=== PATIENT | male | born 1950 | race Caucasian/White ===

== ENCOUNTER → 2020-06-04 10:11 | Outpatient (CLI) | payer MEDICARE, SELFPAY ==
[2020-06-04 11:37] LABS: PSA,Total - Annual Screen 1.68 ng/mL (0.00-4.00)
== END ==
PROVIDERS: PCP Family Medicine; Referring Provider Urology; Visit Provider Urology
DX: Z12.5 Encounter for screening for malignant neoplasm of prostate (principal)
CPT/HCPCS: 36415; 84153; G0103

== ENCOUNTER 2020-07-11 10:09 | Day surgery (SDC) | payer MEDICARE, SELFPAY ==
--- NOTE | 2020-07-04 08:04 | EKG12_ITS ---
Test Reason : PRE OP Blood Pressure : / mmHG Vent. Rate : 084 BPM Atrial Rate : 084 BPM P-R Int : 180 ms QRS Dur : 098 ms QT Int : 356 ms P-R-T Axes : 077 050 074 degrees QTc Int : 420 ms Normal sinus rhythm Nonspecific T wave abnormality Abnormal ECG Confirmed by FARZANEH WADE ([id number]), magazine editor HUI SMART ([id number]) on 07/09/2020 9:47:32 AM Referred By: Ceasar Guevara Confirmed By:FARZANEH WADE
[2020-07-04 08:26] LABS: Hemoglobin 14.8 g/dL (13.0-16.5); Mean Corp Hgb Conc 33.6 g/dL (32-36); Mean Corpuscular Volume 92.1 fL (80-94); Mean Platelet Vol. 9.1 fl (6.2-12.0); Platelet Count 280 K/mm3 (150-450); RBC Distribution Width CV 13.1 % (11.6-14.6); RBC Distribution Width SD 44.3 fl (35.1-43.9); Red Blood Count 4.78 M/mm3 (4.6-6.2); White Blood Count 7.4 K/mm3 (4.4-11.0)
[2020-07-04 08:58] LABS: Anion Gap 3 (5-15); BUN 16 mg/dL (7-18); BUN/Creat Ratio 13.9 RATIO (10-20); Calcium,Total 9.2 mg/dL (8.5-10.1); Chloride 102 mmol/L (98-107); Creatinine, Serum 1.15 mg/dL (0.70-1.30); EST Glomerular Filtration Rate 67 mL/min (>60); Est Glom Filt Rate - Afr Amer 81 mL/min (>60); Glucose 138 mg/dL (74-106); Potassium 3.9 mmol/L (3.5-5.1); Sodium Level 135 mmol/L (136-145)
[2020-07-11] VITALS (7 sets, daily range): BP systolic 130–155; BP diastolic 76–90; PULSE 75–100; RESP 16–18; TEMP 36.1–36.6; O2SAT 94–100; BMI 22.5
[2020-07-11] MEDS: Lactated Ringers 1,000 ML 100 ML IV (11:10)
[2020-07-11] MEDS: Ciprofloxacin 400 MG/200 ML BAG 200 MG IV (11:11)
--- NOTE | 2020-07-11 12:10 | PCM.HP.STD ---
History of Present Illness Date of Admission: 07/11/20 Chief Complaint: Bladder tumor The patient is a 69 year old male found to have bladder tumor on cystoscopy today we plan to take him to surgery for resection of a 3 cm bladder tumor Past Medical History Allergies amoxicillin [From Augmentin] Allergy (Verified 07/11/20 10:59) PT UNSURE OF REACTION blisters on tongue clavulanic acid [From Augmentin] Allergy (Verified 07/11/20 10:59) PT UNSURE OF REACTION blisters on tongue Home Medications: Ambulatory Orders Medication Instructions Recorded Lisinopril/Hydrochlorothiazide 1 ea PO DAILY 07/03/20 [Lisinopril-Hctz 10-12.5 mg Tab] Surgical History: no surgical history Smoking Status: Former smoker Review of Systems Constitutional: Denies: Chills, Fever, Weight Change HEENT: Denies: Head Aches, Sinus Congestion, Sinus Drainage Cardiovascular: Denies: Chest Pain, Palpitations Respiratory: Denies: Cough, Shortness of breath at rest, Sputum production Gastrointestinal: Denies: Abdominal Pain, Nausea, Vomiting Genitourinary: Denies: Dysuria Musculoskeletal: Denies: Joint Pain, Joint Tenderness Skin: Denies: Rash, Wounds Neurological: Denies: Numbness, Tingling, Focal weakness Psychiatric: Denies: Anxiety, Depression, Homicidal Ideations, Suicidal Ideations Hematologic/ Lymphatic: Denies: Easy Bruising, Easy Bleeding VTE Information - Inpt Only VTE Present on Admission: No VTE Mechan Device Prophylaxis: SCD's - Physical Exam Vitals/I&O's: Vital Signs Temp Pulse Resp BP Pulse Ox 97.9 F 75 16 143/77 H 100 07/11/20 11:00 07/11/20 11:00 07/11/20 11:00 07/11/20 11:07/11/20 11:00 Oxygen Delivery Method Room Air Weight: 67.2 kg Body Mass Index (BMI) 22.5 General: Alert, Oriented x3, Cooperative HEENT: Atraumatic, PERRLA, EOMI, Normocephalic Neck: Supple, No JVD, Negative Carotid Bruits Lungs: Clear to auscultation, Normal air movement Cardiovascular: Regular rate, No murmurs Abdomen: Bowel Sounds Present, Soft, Non Tender Extremities: No edema, Capillary Refill Less than 3 Seconds Skin: No rashes, No breakdown Musculoskeletal: No Tenderness to Palpation of Joints or Extremities Neurological: Cranial nerves II-XII grossly intact Psych/Mental Status: Normal Affect, Appropriate Current Medications Ciprofloxacin (Cipro) 400 mg in 200 mls @ 200 mls/hr IV PREOP ONE Stop: 07/11/20 13:44 Last Admin: 07/11/20 11:11 Dose: 200 mls/hr Documented by: Lactated Ringer's () 1,000 mls @ 100 mls/hr IV .Q10H JENNIFER Last Admin: 07/11/20 11:10 Dose: 100 mls/hr Documented by: Assessment/Plan Plan to proceed with transurethral section of bladder tumor
--- NOTE | 2020-07-11 12:13 | PCM.DC.URO ---
Discharge Diet: Light diet - advance as tolerated Discharge Activity: Return to Normal Activity Allergies/Adverse Reactions: Allergies amoxicillin [From Augmentin] Allergy (Verified 07/11/20 10:59) PT UNSURE OF REACTION blisters on tongue clavulanic acid [From Augmentin] Allergy (Verified 07/11/20 10:59) PT UNSURE OF REACTION blisters on tongue Medications to take at Discharge Lisinopril/Hydrochlorothiazide [Lisinopril-Hctz 10-12.5 mg Tab] 1 ea PO DAILY 07/03/20 Ciprofloxacin [Cipro] 500 mg PO BID #6 tab 07/11/20 Hydrocodone/Acetaminophen [Vanderwagen 5-325 Tablet] 1 each PO Q4H PRN PRN #14 tablet 07/11/20 The following prescriptions were given: Ciprofloxacin [Cipro] 500 mg PO BID #6 tab Transmission Status: Pending to [facility]/pharmacy #[id number] Hydrocodone/Acetaminophen [Vanderwagen 5-325 Tablet] 1 each PO Q4H PRN PRN #14 tablet PRN Reason: Pain Score 1-10/10 Transmission Status: Received by [facility]pharmacy #[id number] Primary Care Physician: Lopez Gonzales MD [Primary Care Provider] - Test Results: Test results from this visit will be discussed in further detail at your follow-up appointment, if applicable. Please Follow Up With: Ceasar Guevara MD When: in 2 weeks, please call to make an appointment.
--- NOTE | 2020-07-11 12:20 | BLB_PTH ---
PATIENT: NURA HOLMAN Jr. [place] [facility] [id number] AGE/SX: 69/M ROOM: RE07/11/[address]: Dr. Ceasar Guevara MD : 1950 BED: DIS: 07/11/2020 SPEC #: [id number] RECD: 07/11/20 14:18 STATUS: KYREE REDiya #: [id number] MONICA: 07/11/20 12:[address]: Ceasar Guevara DEPT: SURGICAL PATHOLOGY RECD BY: Dante Hernandez ENTERED: 07/12/20 11:46 SP TYPE: TURB OTHR DR: Dr. Lopez Gonzales MD Tissues: Urinary bladder, NOS Procedures: Surgery Specimen Level V HEADER OPERATION: Cysto, transurethral resection bladder, Olympus PRE-OP DIAGNOSIS: Bladder tumor TISSUE SUBMITTED: Bladder tumor MICROSCOPIC DIAGNOSIS Urinary bladder tumor, transurethral resection: Papillary urothelial carcinoma. See cancer checklist below. AM:dhara 07/13/20 COMMENT BLADDER CANCER (TUR) SUMMARY Procedure: Transurethral resection of bladder (TURBT) Tumor site: Not specified Histologic type: Papillary urothelial carcinoma Histologic grade: Low grade (WHO) Tumor configuration: Papillary Muscularis propria invasion presence: No detrusor muscle present. Lymphvascular invasion: Not identified Tumor extension: Limited to urothelium. Additional pathologic findings: Mild chronic inflammation. The above summary is in compliance with [employer] [place] [employer] (CAP) Cancer Protocols Checklist and [place] Joint Committee on Cancer (AJCC), Staging Manual, 8th Ed. MICROSCOPIC DESCRIPTION Slides are reviewed. GROSS DESCRIPTION Received in fixative is one container labeled with the patient's name and designated bladder tumor. The specimen consists of multiple irregular fragments of hogan soft tissue that in aggregate measure 2.5 x 2 x 0.2 cm. The specimen is totally submitted in one cassette. / SJ:dhara 07/12/20 TC:0 CPT: 58642
--- NOTE | 2020-07-11 12:32 | OP.PCM_ITS ---
Report of Operation Date of Procedure: 07/11/20 Pre-Operative Diagnosis: Bladder tumor lateral wall 3 cm Post-Operative Diagnosis: Same Surgery/Procedure Performed:: Cystoscopy transurethral resection of a bladder tumor. Description of Surgical Findings:: 69-year-old male was found to have a 3 cm tumor in the lateral wall of the bladder is a solitary large tumor in presents to the operating room for resection of this tumor. Patient was taken back to surgery after induction of general anesthesia he was placed in dorsolithotomy position the penis and testicles were prepped and draped in usual fashion went into the bladder with a 21 B[place] rigid cystourethroscope did a miller cystoscopy a 30 and 70 degree lens he had an obstructive prostate bilateral hypertrophy small median lobe inside the bladder the trigone was identified the left right ureter orifice were clear there was a tumor emanating from the left lateral wall is about 3 cm in size papillary in type and no other tumors are seen visibly within the bladder there was a bunch of little tumors around the main tumor I then switched over the resectoscope using a 30 degree lens and a median loop I then resected this tumor completely cauterized the base Ellik out all the tumor chips out of the bladder handed off as a specimen patient's bladder was drained anesthetic is being reversed we will plan to see him back in about 10 days for review of the pathology and probably plan for BCG given the findings at resection. Type of Anesthesia:: General Drains: none - Admit VTE Documentation VTE Present on Admission: No VTE Mechan Device Prophylaxis: SCD's
== END 2020-07-11 14:26 | disposition home or self-care (01) ==
LOC: SDC 10:09 → AC 10:09
PROVIDERS: Anesthesiology; PCP Family Medicine; Referring Provider Urology; Visit Provider Urology
PROC: 0TBB8ZZ Excision of Bladder, Via Natural or Artificial Opening Endoscopic (ICD-10-PCS; CPT 52235; principal; 2020-07-11 12:10)
DX: C67.2 Malignant neoplasm of lateral wall of bladder (principal); I10 Essential (primary) hypertension; N40.1 Benign prostatic hyperplasia with lower urinary tract symptoms; Z79.899 Other long term (current) drug therapy; Z87.891 Personal history of nicotine dependence
CPT/HCPCS: 52235; 36415; 80048; 85027; 87635; 88307; 93005; 94799; J7120; J0744; J2405; U0003

== ENCOUNTER → 2020-09-12 09:05 | Outpatient (CLI) | payer MEDICARE, SELFPAY ==
[2020-07-11 11:00] VITALS: BMI 22.5
== END ==
PROVIDERS: PCP Family Medicine; Visit Provider Nurse Practitioner Family
DX: Z20.828 Contact with and (suspected) exposure to other viral communicable diseases (principal)
CPT/HCPCS: 87635; C9803; U0003

== ENCOUNTER → 2020-10-16 | Outpatient (CLI) | payer MEDICARE, SELFPAY ==
[2020-07-11 11:00] VITALS: BMI 22.5
--- NOTE | 2020-10-16 | CYSPIN_PTH ---
PATIENT: NURA HOLMAN Jr. LOC: [facility] U#:[id number] AGE/SX: 70/M ROOM: RE10/16/[address]: Dr. Ceasar Guevara MD : 1950 BED: DIS: 10/16/2020 SPEC #: [id number] RECD: 10/17/20 08:12 STATUS: KYREE LAURA #: [id number] MONICA: 10/16/20 00:[address]: Ceasar Guevara DEPT: CYTOLOGY RECD BY: Mariel Chavez ENTERED: 10/17/20 08:14 SP TYPE: CYSPIN FL OTHR DR: Dr. Lopez Gonzales MD Tissues: Urine Procedures: Pap Stain (control) Special Stain Group II Cytospin Fluid HEADER OPERATION: Not noted PRE-OP DIAGNOSIS: Malignant neoplasm of lateral wall of bladder TISSUE SUBMITTED: Urine for cytology DIAGNOSIS CYTOLOGY Urine for cytology (cytospin): Rare atypical urothelial cells present. AM:dhara 10/18/20 COMMENT Reference is made to the patient's recent bladder TUR ([id number]) in which papillary urothelial carcinoma (low-grade) was identified. CYTOLOGY STUDY Slides are reviewed. CYTOLOGY GROSS Received is 20 ml of dark yellow cloudy fluid labeled with the patient's name and and designated per the requisition as urine. Submitted for cytology preparation. / dhara 10/17/20 TC:? CPT: 51930
[2020-10-16 13:31] LABS: Cytology, Body Fluid / CSF SEE PATHOLOGY REPORT
== END | disposition home or self-care (01) ==
LOC: LABSPEC 12:41
PROVIDERS: PCP Family Medicine; Visit Provider Urology
DX: C67.2 Malignant neoplasm of lateral wall of bladder (principal)
CPT/HCPCS: 88108; 88313

== ENCOUNTER → 2021-01-17 | Outpatient (CLI) | payer MEDICARE, SELFPAY ==
[2020-07-11 11:00] VITALS: BMI 22.5
--- NOTE | 2021-01-17 | BLA_PTH ---
PATIENT: NURA HOLMAN Jr. LOC: [facility] U#:[id number] AGE/SX: 70/M ROOM: RE01/17/[address]: Dr. Ceasar Guevara MD : 1950 BED: DIS: 01/17/2021 SPEC #: [id number] RECD: 01/17/21 13:54 STATUS: KYREE REDiya #: [id number] MONICA: 01/17/21 00:[address]: Ceasar Guevara DEPT: SURGICAL PATHOLOGY RECD BY: Maximilian Montero ENTERED: 01/17/21 13:54 SP TYPE: BLADDER BX OTHR DR: Dr. Lopez Gonzales MD Tissues: Urinary bladder, NOS Procedures: Surgery Specimen Level IV HEADER OPERATION: Bladder biopsy PRE-OP DIAGNOSIS: Neoplasm of bladder TISSUE SUBMITTED: Bladder biopsy MICROSCOPIC DIAGNOSIS Bladder, biopsy: Papillary urothelial carcinoma, low grade (1-2/3). See comment. CONCHA:dhara 01/18/2021 COMMENT The entire specimen consists of tumor. Detrusor muscle is not identified. No lamina propria invasion is noted. Lymphvascular invasion is not seen. Please make reference to previous specimen ([id number]) urinary bladder tumor, TUR with diagnosis of papillary urothelial carcinoma. MICROSCOPIC DESCRIPTION Slides are reviewed. GROSS DESCRIPTION Received in fixative is one container labeled with the patient's name and designated bladder biopsy. The specimen consists of one irregular fragment of light hogan soft tissue that measures 0.2 x 0.1 x 0.1 cm. The specimen is totally submitted in one cassette. / SJ:dhara 01/17/21 TC:0 CPT: 06212
--- NOTE | 2021-01-17 09:45 | CYSPIN_PTH ---
PATIENT: NURA HOLMAN Jr. LOC: [facility] U#:[id number] AGE/SX: 70/M ROOM: RE01/17/[address]: Dr. Ceasar Guevara MD : 1950 BED: DIS: 01/17/2021 SPEC #: [id number] RECD: 01/18/21 08:24 STATUS: KYREE REDiya #: [id number] MONICA: 01/17/21 09:[address]: Ceasar Guevara DEPT: CYTOLOGY RECD BY: Mariel Chavez ENTERED: 01/18/21 08:24 SP TYPE: CYSPIN FL OTHR DR: Dr. Lopez Gonzales MD Tissues: Urine Procedures: Pap Stain (control) Special Stain Group II Cytospin Fluid HEADER OPERATION: Not noted PRE-OP DIAGNOSIS: Bladder cancer TISSUE SUBMITTED: Urine for cytology DIAGNOSIS CYTOLOGY Urine for cytology (cytospin): Negative for malignant cells. See comment. SJ:dhara 01/18/2021 COMMENT Numerous crystals are also noted. The specimen also shows numerous sperms consistent with semen contamination. Clinical correlation and appropriate follow up are necessary. Please make reference to previous specimen ([id number]), urinary bladder tumor, TUR with diagnosis of papillary urothelial carcinoma. CYTOLOGY STUDY Slides are reviewed. CYTOLOGY GROSS Received is 40 ml of gold cloudy fluid labeled with the patient's name and and designated per the requisition as urine. Submitted for cytology preparation. / dhara 01/17/21 TC:5 CPT: 94725
[2021-01-17 17:01] LABS: Cytology, Body Fluid / CSF SEE PATHOLOGY REPORT
== END | disposition home or self-care (01) ==
PROVIDERS: PCP Family Medicine; Visit Provider Urology
DX: C67.2 Malignant neoplasm of lateral wall of bladder (principal)
CPT/HCPCS: 88108; 88305; 88313

== ENCOUNTER 2021-01-22 07:36 | Outpatient (RCR) | payer MEDICARE, SELFPAY ==
[2020-07-11 11:00] VITALS: BMI 22.5
[2021-01-22] MEDS: COVID-19 VACC, MRNA(PFIZER)/PF 30 MCG/0.3 ML SYRINGE IM (08:07)
[2021-02-12] MEDS: COVID-19 VACC, MRNA(PFIZER)/PF 30 MCG/0.3 ML SYRINGE IM (07:50)
== END 2021-04-23 23:59 ==
LOC: IMMUN 07:36
PROVIDERS: PCP Family Medicine; Referring Provider Family Medicine; Visit Provider Family Medicine
DX: Z23 Encounter for immunization (principal)
CPT/HCPCS: 0001A; 0002A; 91300

== ENCOUNTER → 2021-05-02 | Outpatient (CLI) | payer MEDICARE, SELFPAY ==
[2020-07-11 11:00] VITALS: BMI 22.5
--- NOTE | 2021-05-02 | CYSPIN_PTH ---
PATIENT: NURA HOLMAN Jr. LOC: [facility] U#:[id number] AGE/SX: 70/M ROOM: RE05/02/[address]: Dr. Ceasar Guevara MD : 1950 BED: DIS: 05/02/2021 SPEC #: [id number] RECD: 05/02/21 12:34 STATUS: KYREE REDiya #: [id number] MONICA: 05/02/21 00:[address]: Ceasar Guevara DEPT: CYTOLOGY RECD BY: Maximilian Montero ENTERED: 05/02/21 12:35 SP TYPE: CYSPIN FL OTHR DR: Dr. Lopez Gonzales MD Tissues: Urine Procedures: Pap Stain (control) Special Stain Group II Cytospin Fluid HEADER OPERATION: Not noted PRE-OP DIAGNOSIS: Malignant neoplasm of lateral wall of bladder TISSUE SUBMITTED: Urine for cytology DIAGNOSIS CYTOLOGY Urine for cytology (cytospin): Rare mildly atypical urothelial cells noted. See comment. SJ:dhara 05/03/2021 COMMENT The specimen is paucicellular. A few sperms are also noted. Clinical correlation and appropriate follow up are necessary. Please make reference to previous specimens ([id number]) urinary bladder tumor with diagnosis of papillary urothelial carcinoma and ([id number]) bladder, biopsy with diagnosis of papillary urothelial carcinoma, low grade. CYTOLOGY STUDY Slides are reviewed. CYTOLOGY GROSS Received is 10 ml of gold, cloudy fluid labeled with the patient's name and and designated per the requisition as urine. Submitted for cytology preparation. / dhara 05/02/2021 TC:5 CPT: 53781
[2021-05-02 11:37] LABS: Cytology, Body Fluid / CSF SEE PATHOLOGY REPORT
== END | disposition home or self-care (01) ==
PROVIDERS: PCP Family Medicine; Visit Provider Urology
DX: C67.2 Malignant neoplasm of lateral wall of bladder (principal)
CPT/HCPCS: 88108; 88313

== ENCOUNTER → 2021-09-02 | Outpatient (CLI) | payer MEDICARE, SELFPAY ==
--- NOTE | 2021-09-02 09:35 | BLA_PTH ---
PATIENT: NURA HOLMAN Jr. LOC: [facility] U#:[id number] AGE/SX: 71/M ROOM: RE09/02/[address]: Dr. Ceasar Guevara MD : 1950 BED: DIS: 09/02/2021 SPEC #: [id number] RECD: 09/02/21 12:51 STATUS: KYREE REDiya #: [id number] MONICA: 09/02/21 09:[address]: Ceasar Guevara DEPT: SURGICAL PATHOLOGY RECD BY: Mariel Chavez ENTERED: 09/02/21 13:17 SP TYPE: BLADDER BX OTHR DR: Dr. Lopez Gonzales MD Tissues: Urinary bladder, NOS Procedures: Surgery Specimen Level IV HEADER OPERATION: Bladder biopsy PRE-OP DIAGNOSIS: C67.2 TISSUE SUBMITTED: Bladder biopsy MICROSCOPIC DIAGNOSIS Bladder, biopsy: Papillary urothelial carcinoma, noninvasive, low grade (/). See comment. CONCHA:dhara 09/03/2021 COMMENT Lamina propria invasion is not seen. No evidence of vascular invasion is noted. Detrusor muscle is not present in the specimen. Please make reference to previous specimens ([id number]) bladder, biopsy with diagnosis of ?papillary urothelial carcinoma, low grade (1-2/3)? and ([id number]) urinary bladder tumor, transurethral resection with diagnosis of ?papillary urothelial carcinoma.? Case has been reviewed in consultation with Dr. Mendoza who concurs with the above diagnosis. IDC:AM MICROSCOPIC DESCRIPTION Slides are reviewed. GROSS DESCRIPTION Received is one container labeled with the patient's name and not further designated. The specimen consists of three irregular fragments of light hogan soft tissue that in aggregate measure 0.3 x 0.3 x 0.1 cm. The specimen is totally submitted in one cassette. / AM:dhara 09/02/21 TC:0 CPT: 85132
--- NOTE | 2021-09-02 10:06 | CYSPIN_PTH ---
PATIENT: NURA HOLMAN Jr. LOC: [facility] U#:[id number] AGE/SX: 71/M ROOM: RE09/02/[address]: Dr. Ceasar Guevara MD : 1950 BED: DIS: 09/02/2021 SPEC #: [id number] RECD: 09/03/21 08:20 STATUS: KYREE REQ #: [id number] MONICA: 09/02/21 10:[address]: Ceasar Guevara DEPT: CYTOLOGY RECD BY: Maximilian Montero ENTERED: 09/03/21 08:21 SP TYPE: CYSPIN FL OTHR DR: Dr. Lopez Gonzales MD Tissues: Urine Procedures: Pap Stain (control) Special Stain Group II Cytospin Fluid HEADER OPERATION: Not noted PRE-OP DIAGNOSIS: Malignant neoplasm of prostate TISSUE SUBMITTED: Urine for cytology DIAGNOSIS CYTOLOGY Urine for cytology (cytospin): Negative for malignant cells. Crystalline debris present. AM:dhara 09/03/2021 CYTOLOGY STUDY Slides are reviewed. CYTOLOGY GROSS Received is 30 ml of yellow cloudy fluid labeled with the patient's name and and designated per the requisition as urine. Submitted for cytology preparation. / dhara 09/03/2021 TC:5 CPT: 58243
[2021-09-02 13:16] LABS: Cytology, Body Fluid / CSF SEE PATHOLOGY REPORT
== END | disposition home or self-care (01) ==
PROVIDERS: PCP Family Medicine; Referring Provider Urology; Visit Provider Urology
DX: Z12.5 Encounter for screening for malignant neoplasm of prostate (principal); C67.2 Malignant neoplasm of lateral wall of bladder
CPT/HCPCS: 88108; 88305; 88313

== ENCOUNTER → 2021-09-03 09:31 | Outpatient (CLI) | payer MEDICARE, SELFPAY ==
--- NOTE | 2021-09-03 09:38 | EKG12_ITS ---
Test Reason : PREOP Blood Pressure : / mmHG Vent. Rate : 059 BPM Atrial Rate : 059 BPM P-R Int : 206 ms QRS Dur : 094 ms QT Int : 388 ms P-R-T Axes : 077 032 072 degrees QTc Int : 384 ms Sinus bradycardia Confirmed by SUKHWINDER WAKEFIELD, LEORA ([id number]), editor greeting card SONIA TRINIDAD ([id number]) on 09/03/2021 2:01:58 PM Referred By: Ceasar Guevara Confirmed By:LEORA PRETTY MD
[2021-09-03 10:54] LABS: Hematocrit 44.2 % (40-54); Hemoglobin 13.9 g/dL (13.0-16.5); Mean Corp Hgb Conc 31.4 g/dL (32-36); Mean Corpuscular Hgb 29.3 pg (27.0-32.0); Mean Corpuscular Volume 93.2 fL (80-94); Mean Platelet Vol. 9.6 fl (6.2-12.0); Platelet Count 295 K/mm3 (150-450); RBC Distribution Width CV 13.7 % (11.6-14.6); RBC Distribution Width SD 47.5 fl (35.1-43.9); Red Blood Count 4.74 M/mm3 (4.6-6.2); White Blood Count 6.8 K/mm3 (4.4-11.0)
[2021-09-03 11:23] LABS: Anion Gap 8 (5-15); BUN 16 mg/dL (7-18); BUN/Creat Ratio 13.7 RATIO (10-20); Calcium,Total 9.6 mg/dL (8.5-10.1); Chloride 101 mmol/L (98-107); Creatinine, Serum 1.17 mg/dL (0.70-1.30); EST Glomerular Filtration Rate 65 mL/min (>60); Est Glom Filt Rate - Afr Amer 79 mL/min (>60); Glucose 95 mg/dL (74-106); Potassium 4.1 mmol/L (3.5-5.1); Sodium Level 139 mmol/L (136-145)
== END ==
PROVIDERS: PCP Family Medicine; Referring Provider Urology; Visit Provider Urology
DX: Z01.812 Encounter for preprocedural laboratory examination (principal); I10 Essential (primary) hypertension
CPT/HCPCS: 36415; 80048; 85027; 93005

== ENCOUNTER → 2021-09-13 | Outpatient (CLI) | payer MEDICARE, SELFPAY ==
--- NOTE | 2021-09-13 07:52 | BLB_PTH ---
PATIENT: NURA HOLMAN Jr. LOC: [facility] U#:[id number] AGE/SX: 71/M ROOM: RE09/13/[address]: Dr. Ceasar Guevara MD : 1950 BED: DIS: 09/13/2021 SPEC #: [id number] RECD: 09/13/21 14:50 STATUS: KYREE REDiya #: [id number] MONICA: 09/13/21 07:[address]: Ceasar Guevara DEPT: SURGICAL PATHOLOGY RECD BY: Maximilian Montero ENTERED: 09/16/21 08:15 SP TYPE: TURB OTHR DR: Dr. Lopez Gonzales MD [facility] Tissues: Urinary bladder, NOS Procedures: Surgery Specimen Level V HEADER OPERATION: Transurethral resection of bladder tumor PRE-OP DIAGNOSIS: Neoplasm of bladder TISSUE SUBMITTED: Bladder tumor MICROSCOPIC DIAGNOSIS Bladder tumor, TUR: Papillary urothelial carcinoma. See cancer summary in the comment section. SJ:dhara 09/17/2021 COMMENT BLADDER CANCER (TUR) SUMMARY Procedure: Transurethral resection of bladder (TURBT) Tumor site: Not specified Histologic type: Papillary urothelial carcinoma, noninvasive Histologic grade: Low grade (1/3) Tumor configuration: Papillary Muscularis propria presence: Muscularis propria (detrusor muscle) is present and free of tumor. Lymphvascular invasion: Not identified Tumor extension: Noninvasive papillary carcinoma Additional pathologic findings: Focal cautery artifacts. The above summary is in compliance with [employer] [place] [employer] (CAP) Cancer Protocols Checklist and [place] [employer] Committee on Cancer (AJCC), Staging Manual, 8th Ed. Case has been reviewed in consultation with Dr. Mendoza who concurs with the above diagnosis. IDC:AM MICROSCOPIC DESCRIPTION Slides are reviewed. GROSS DESCRIPTION Received is one container labeled with the patient's name and not further designated. The specimen consists of two irregular fragments of hogan soft tissue that in aggregate measure 0.4 x 0.3 x 0.1 cm. The specimen is totally submitted in one cassette. / CONCHA:dhara 09/16/21 TC:0 CPT: 44084
== END | disposition home or self-care (01) ==
LOC: LABSPEC 15:14
PROVIDERS: PCP Family Medicine; Visit Provider Urology
DX: C67.2 Malignant neoplasm of lateral wall of bladder (principal)
CPT/HCPCS: 88307

== ENCOUNTER → 2022-06-19 | Outpatient (CLI) | payer MEDICARE, SELFPAY ==
--- NOTE | 2022-06-19 10:38 | CYSPIN_PTH ---
PATIENT: NURA HOLMAN Jr. LOC: [facility] U#:[id number] AGE/SX: 71/M ROOM: RE06/19/[address]: Dr. Ceasar Guevara MD : 1950 BED: DIS: 06/19/2022 SPEC #: [id number] RECD: 06/20/22 06:44 STATUS: KYREE REQ #: [id number] MONICA: 06/19/22 10:[address]: Ceasar Guevara DEPT: CYTOLOGY RECD BY: Mariel Chavez ENTERED: 06/20/22 06:44 SP TYPE: CYSPIN FL OTHR DR: Dr. Lopez Gonzales MD Tissues: Urine Procedures: Pap Stain (control) Special Stain Group II Cytospin Fluid HEADER OPERATION: Not noted PRE-OP DIAGNOSIS: Bladder cancer TISSUE SUBMITTED: Urine for cytology DIAGNOSIS CYTOLOGY Urine for cytology (cytospin): Negative for high grade urothelial carcinoma ([place]bold System Category II). See comment. AM:rg 06/20/2022 COMMENT Occasional metaplastic squamous cells are present. Clinical correlation is suggested. The Nina System for urine cytology diagnostic categorization was used in the evaluation of this case. Case has been reviewed in consultation with Dr. Mark who concurs with the above diagnosis. IDC:SJ CYTOLOGY STUDY Slides are reviewed. CYTOLOGY GROSS Received is 60 ml of yellow clear fluid labeled with the patient's name and and designated per the requisition as urine. Submitted for cytology preparation. / dhara 06/19/2022 TC:5 CPT: 34913
[2022-06-19 16:53] LABS: Cytology, Body Fluid / CSF SEE PATHOLOGY REPORT
== END | disposition home or self-care (01) ==
LOC: LABSPEC 16:35
PROVIDERS: PCP Family Medicine; Referring Provider Urology; Visit Provider Urology
DX: C67.2 Malignant neoplasm of lateral wall of bladder (principal)
CPT/HCPCS: 88108; 88313

== ENCOUNTER → 2022-09-23 | Outpatient (CLI) | payer MEDICARE, SELFPAY ==
--- NOTE | 2022-09-23 11:31 | CYSPIN_PTH ---
PATIENT: NURA HOLMAN Jr. LOC: [facility] U#:[id number] AGE/SX: 72/M ROOM: RE09/23/[address]: Dr. Ceasar Guevara MD : 1950 BED: DIS: 09/23/2022 SPEC #: [id number] RECD: 09/24/22 09:15 STATUS: KYREE REDiya #: [id number] MONICA: 09/23/22 11:[address]: Ceasar Guevara DEPT: CYTOLOGY RECD BY: Mariel Chavez ENTERED: 09/24/22 09:15 SP TYPE: CYSPIN FL OTHR DR: Dr. Paresh Connelly, DO Tissues: Urine Procedures: Pap Stain (control) Special Stain Group II Cytospin Fluid HEADER OPERATION: Not noted PRE-OP DIAGNOSIS: Malignant neoplasm of bladder TISSUE SUBMITTED: Urine for cytology DIAGNOSIS CYTOLOGY Urine for cytology (cytospin): Negative for high-grade urothelial carcinoma (NHGUC), (Nina System Category II). See comment. SJ:dhara 09/24/2022 COMMENT The Nina System for urine cytology diagnostic categorization was used in the evaluation of this case. Please make reference to previous specimens ([id number]), urinary bladder tumor, TUR with diagnosis of ?papillary urothelial carcinoma? and ([id number]) bladder, biopsy with diagnosis of ?papillary urothelial carcinoma? and ([id number]) bladder, biopsy with diagnosis of ?papillary urothelial carcinoma? and ([id number]) bladder tumor, TUR with diagnosis of ?papillary urothelial carcinoma.? CYTOLOGY STUDY Slides are reviewed. CYTOLOGY GROSS Received is 50 ml of yellow cloudy fluid labeled with the patient's name and and designated per the requisition as urine. Submitted for cytology preparation. / dhara 09/23/2022 TC:4 CPT: 40215
[2022-09-23 17:08] LABS: Cytology, Body Fluid / CSF SEE PATHOLOGY REPORT
== END | disposition home or self-care (01) ==
LOC: LABSPEC 16:32
PROVIDERS: PCP Student in an Organized Health Care Education/Training Program; Referring Provider Urology; Visit Provider Urology
DX: C67.2 Malignant neoplasm of lateral wall of bladder (principal)
CPT/HCPCS: 88108; 88313

== ENCOUNTER → 2023-03-31 | Outpatient (CLI) | payer MEDICARE, SELFPAY ==
--- NOTE | 2023-03-31 | CYSPIN_PTH ---
PATIENT: NURA HOLMAN Jr. LOC: [facility] U#:[id number] AGE/SX: 72/M ROOM: RE03/31/[address]: Dr. Ceasar Guevara MD : 1950 BED: DIS: 03/31/2023 SPEC #: [id number] RECD: 03/31/23 14:00 STATUS: KYREE REDiya #: [id number] MONICA: 03/31/23 00:[address]: Ceasar Guevara DEPT: CYTOLOGY RECD BY: Dante Hernandez ENTERED: 04/01/23 07:42 SP TYPE: CYSPIN FL OTHR DR: Dr. Paresh Connelly, DO Tissues: Urine Procedures: Pap Stain (control) Special Stain Group II Cytospin Fluid HEADER OPERATION: Not noted PRE-OP DIAGNOSIS: Malignant neoplasm of bladder TISSUE SUBMITTED: Urine for cytology DIAGNOSIS CYTOLOGY Urine for cytology (cytospin): Negative for high-grade urothelial carcinoma (Nina Category II). See comment. AM:dhara 04/01/2023 COMMENT The Nina System for urine cytology diagnostic categorization was used in the evaluation of this case. CYTOLOGY STUDY Slides are reviewed. CYTOLOGY GROSS Received is 60 ml of hazy yellow fluid labeled with the patient's name and and designated per the requisition as urine. Submitted for cytology preparation. / dhara 03/31/2023 TC:5 CPT: 65918
[2023-03-31 17:14] LABS: Cytology, Body Fluid / CSF SEE PATHOLOGY REPORT
== END | disposition home or self-care (01) ==
LOC: LABSPEC 16:52
PROVIDERS: PCP Student in an Organized Health Care Education/Training Program; Referring Provider Urology; Visit Provider Urology
DX: C67.2 Malignant neoplasm of lateral wall of bladder (principal)
CPT/HCPCS: 88108; 88313

== ENCOUNTER 2023-08-08 11:34 | Observation (INO) | payer MEDICARE, SELFPAY ==
[2023-08-08] VITALS (9 sets, daily range): BP systolic 104–124; BP diastolic 54–72; PULSE 74–87; RESP 15–18; TEMP 36.6–37.2; O2SAT 95–100; BMI 19.8; BMI 20.7
--- NOTE | 2023-08-08 12:06 | US_ITS ---
INDICATION: swelling, pain, redness EXAMINATION: Ultrasound US Scrotum (Contents) TECHNIQUE: Realtime ultrasound of the testicles was performed with grayscale, Color Doppler and spectral Doppler analysis. COMPARISON: No relevant prior comparison study available FINDINGS: RIGHT: TESTIS: 5.3 x 2.8 x 1.8 cm. Normal in size and echotexture, without focal lesion. COLOR DOPPLER: Normal arterial flow present in the testicle with monophasic waveforms. EPIDIDYMIS: Normal in size suboptimally visualized measuring about 7 mm. There is a 2.3 cm cyst. [Normal color Doppler flow pattern in the epididymis. HYDROCELE: None. VARICOCELE: None. LEFT: TESTIS: 4.3 x 2.9 x 3.1 cm. Normal in size and echotexture, without focal lesion. COLOR DOPPLER: There is increased flow to the left testicle. EPIDIDYMIS: Large septated cystic lesion adjacent to the left epididymis measuring about 9.2 x 6.4 x 6 cm could represent large epididymal cysts. [There is increased flow to the left epididymis. HYDROCELE: Moderate left hydrocele with septations VARICOCELE: None. US/Testicular with Arterial Flow IMPRESSION: 1. No evidence of testicular torsion at the time this examination was performed. 2. Large septated cystic lesion adjacent to the left epididymis likely representing large epididymal cyst. Loculated adjacent cysts are seen is less likely but possible. 3. Moderate left hydrocele with septations. Electronically Signed: Casper Francis MD at 13:57 EDT ,
--- NOTE | 2023-08-08 12:08 | EX.ED.GUMALE ---
HPI History of Present Illness Chief Complaint: Male Pain/Injury Narrative Narrative: Patient is a 72-year-old male with history of hypertension, history of bladder cancer. He does see Dr. Guevara. He did see his urologist on , he wanted him to be admitted however the patient did have issues secondary to his having cancer. Patient is here today. Patient's scrotum has been getting increased swelling over the last several days, it is red, he did fail outpatient therapy of Bactrim, Cipro. Patient is here for admission. [facility] Medical History (Updated 08/08/23 @ 15:00 by RAJNI Kemp) BPH (benign prostatic hyperplasia) Former tobacco use GERD (gastroesophageal reflux disease) History of bladder cancer HTN (hypertension) Home Medications lisinopril 10 mg-hydrochlorothiazide 12.5 mg tablet 1 ea PO DAILY bp 07/03/20 [History Last Taken Unknown] tamsulosin 0.4 mg capsule 0.4 mg PO QHS 08/08/23 [History Last Taken Unknown] Allergy/AdvReac Type Severity Reaction Status Date / Time amoxicillin [From Augmentin] Allergy PT UNSURE Verified 08/08/23 11:35 OF REACTION clavulanic acid Allergy PT UNSURE Verified 08/08/23 11:35 [From Augmentin] OF REACTION Family History (Updated 08/08/23 @ 14:[address] Regina Jean MD) Mother Hypertension Thyroid disorder Father Diabetes Surgical History (Updated 08/08/23 @ 13:[address] Regina Jean MD) History of bladder surgery Hx of colonoscopy S/P repair of hydrocele Social History (Updated 08/08/23 @ 13:[address] Regina Jean MD) household members: spouse Smoking Status: Former smoker how long ago did patient quit smoking: Quit 2009. substance use type: does not use ROS ROS ED ROS Narrative Constitutional: Negative for weight loss, weakness. Positive for fever and chills Eyes: Negative for vision loss, vision change, double vision ENT: Negative for any sore throat, ear pain, congestion Cardiovascular: Negative for any chest pain, tightness, palpitations Respiratory: Negative for any cough, sputum production, hemoptysis, dyspnea, dyspnea on exertion, orthopnea Gastrointestinal: Negative for any abdominal pain, nausea, vomiting, diarrhea, constipation, blood in stool, blood in vomit : Negative for any urinary frequency, dysuria, retention, blood in urine. Positive for left-sided testicular swelling, redness Muscle skeletal: Negative for any muscle joint pain, stiffness, myalgias, arthralgias, neck pain, back pain Neurological: Negative for any headache, syncope, numbness or tingling, dizziness Skin: Negative for any rashes, lumps, itching, abrasions, lacerations Psychiatric: Negative for any depression, anxiety, stress, suicidal ideation, homicidal ideation Hematologic: Negative for any easy bruising, excessive bruising, easy bleeding Allergies: Negative for any eczema, hives, rash EXAM Physical Exam Narrative Exam Narrative: Vital signs reviewed. HEET: Head normocephalic atraumatic, TMs clear bilaterally. Posterior pharynx is clear, moist mucous membranes. Nares clear bilaterally. Neck: Supple with no lymphadenopathy or tenderness. No signs of meningismus, negative jolt sign. Cardiac: Regular rate and rhythm no murmurs gallops or rubs, equal peripheral pulses bilaterally. Respiratory: Lungs clear to auscultation bilaterally. No chest tenderness. Abdomen: Soft, nontender, nondistended. No abdominal bruit or pulsatile masses. No hepatosplenomegaly Extremities: No peripheral edema, no signs of gross trauma or deformity. Active full range of motion of all extremities. Neuro: Cranial nerves II through XII intact, no focal neurological deficits. Skin: Clean dry and intact with no rash, purpura, petechiae, vesicles or pustules. Backs/flank: No CVA tenderness, no midline spinal tenderness, no deformity. Psych: Normal mood and affect. No SI, HI or acute psychosis. : Patient's scrotum shows erythema, edema. Patient has induration to the left testicle, significant redness, pain on palpation. Const Vital Signs: 08/08/23 11:35 08/08/23 12:07 08/08/23 11:37 Temperature 98.6 F 98 F Temperature Source Temporal Temporal Pulse Rate 87 83 Respiratory Rate 16 18 Blood Pressure 122/54 H 124/72 H Blood Pressure Mean 76 89 Pulse Ox 99 98 Oxygen Delivery Method Room Air Room Air 08/08/23 12:37 08/08/23 14:40 Temperature 98 F Temperature Source Temporal Pulse Rate 82 Respiratory Rate 18 Blood Pressure 122/68 H 115/57 L Blood Pressure Mean 86 76 Pulse Ox 98 98 Oxygen Delivery Method Room Air Positive well nourished and well developed General Appearance ED: well developed MDM MDM Lab Data Labs: Laboratory Results - last 24 hr 08/08/23 08/08/23 12:20 13:44 WBC 16.8 H RBC 3.67 L Hgb 11.4 L Hct 33.3 L MCV 90.7 MCH 31.1 MCHC 34.2 RDW Std Deviation 44.5 H RDW Coeff of Jerica 13.4 Plt Count 356 MPV 8.8 Immature Gran % (Auto) 0.500 Neut % (Auto) 82.8 H Lymph % (Auto) 7.5 L Wirt % (Auto) 8.8 Eos % (Auto) 0.2 Baso % (Auto) 0.2 Absolute Neuts (auto) 13.9 H Absolute Lymphs (auto) 1.26 Nucleated RBC % 0 PT 16.2 H INR 1.3 APTT 32.6 Sodium 132 L Potassium 3.6 Chloride 102 Carbon Dioxide 27.0 Anion Gap 3 L BUN 20 H Creatinine 1.27 Estim Creat Clear Calc 44.50 Est GFR (MDRD) Af Amer 71 Est GFR (MDRD) Non-Af 59 L BUN/Creatinine Ratio 15.7 Glucose 104 Lactic Acid 1.3 Calcium 9.1 Total Bilirubin 0.60 AST 14 L ALT 24 Alkaline Phosphatase 70 Total Protein 7.6 Albumin 2.7 L Globulin 4.9 H Albumin/Globulin Ratio 0.6 L Urine Color Yellow Urine Clarity Sl. Cloudy Urine pH 7.0 Ur Specific [place] 1.010 Urine Protein 30 H Urine Glucose (UA) Normal Urine Ketones Negative Urine Occult Blood 50 H Urine Nitrite Negative Urine Bilirubin Negative Urine Urobilinogen Normal Ur Leukocyte Esterase Negative Urine RBC 0-5 SEEN Urine WBC 0-5 SEEN Ur Squamous Epith Cells 0 SEEN Urine Bacteria RARE Urine Mucus 0 SEEN Radiography Diagnostic Testing: Clinical Impression(s) from Imaging Studies Testicular Ultrasound 08/08/23 12:06 IMPRESSION: 1. No evidence of testicular torsion at the time this examination was performed. 2. Large septated cystic lesion adjacent to the left epididymis likely representing large epididymal cyst. Loculated adjacent cysts are seen is less likely but possible. 3. Moderate left hydrocele with septations. Electronically Signed: Casper Francis MD at 13:57 EDT , Treatment and Re-Evaluation Narrative: Patient is in minor distress secondary to pain to the scrotum. Patient presents to the emergency department for scrotal swelling, pain and redness. Patient has been treated with Bactrim outpatient however it is not working. I did reach out to Dr. Guevara, he recommended an ultrasound, IV Rocephin. Patient will receive a septic work-up with 2 sets of blood cultures secondary to the patient's fever and chills. Patient will need to be admitted to the hospital, patient was given Tylenol for discomfort as well as fever and chills. All radiologic examinations were read, reviewed by the emergency department attending. From these reads, a plan of care will be put in place. I spoke with Dr. Guevara, he would like an medicine admission. He will see the patient. Patient urinalysis was negative for any infection. Patient had 2 sets of blood cultures drawn, patient will be started IV Rocephin. Patient's CBC showed leukocytosis white blood count of 16.8, patient's chemistries show slight hyponatremia at 132, GFR 59. Lactic acid was negative. Patient be admitted to medicine. Patient did receive an ultrasound of the testicles, showed no evidence of testicle torsion at this time this examination was performed. Large septated cystic lesion adjacent to the left epididymitis likely representing large epididymal cyst. Loculated adjacent cysts are seen is less likely but possible. Moderate left hydrocele with septations. Patient will be admitted to the hospital. Patient was given a Percocet for pain. Patient remained stable. Discharge Plan Triage Chief Complaint: Male Pain/Injury ED Midlevel Provider: Uriha Rodriguez ED Provider: Uriah Garcia Dx/Rx/DC Orders Clinical Impression: Cyst of scrotum, Cellulitis of scrotum, Leukocytosis Prescriptions: No Action lisinopril-hydrochlorothiazide 1 EACH tablet 1 ea PO DAILY tamsulosin 0.4 mg capsule 0.4 mg PO QHS Patient Comments: TAKE 1 CAPSULE BY MOUTH EVERYDAY AT BEDTIME Primary Care Provider: Paresh Connelly Referrals: Paresh Connelly DO [Primary Care Provider] - Disposition Disposition: Acute Care Hospital
[2023-08-08] MEDS: oxyCODONE 5 MG Tablet PO (12:25)
[2023-08-08] MEDS: Ceftriaxone 1 GM/50 ML BAG IV (12:26)
[2023-08-08] MEDS: Acetaminophen 500 MG Tablet 1000 MG PO (12:26)
[2023-08-08 12:32] LABS: Absolute Lymphocyte Count 1.26 X10^3/uL (0.83-4.51); Absolute Neutrophil Count 13.9 X10^3/uL (2.0-7.7); Basophil# 0.04 X10^3/uL; Basophil% 0.2 % (0-1); Eosinophil# 0.03 X10^3/uL; Eosinophils% 0.2 % (0-5); Hematocrit 33.3 % (40-54); Hemoglobin 11.4 g/dL (13.0-16.5); Lymphocyte # 1.26 X10^3/ul (0.83-4.51); Lymphocyte % 7.5 % (19-41); Mean Corp Hgb Conc 34.2 g/dL (32-36); Mean Corpuscular Hgb 31.1 pg (27.0-32.0); Mean Corpuscular Volume 90.7 fL (80-94); Mean Platelet Vol. 8.8 fl (6.2-12.0); Monocyte# 1.49 X10^3/uL; Monocyte% 8.8 % (0-10); NRBC Flagged by Analyzer 0 % (0-5); Neutrophil # 13.94 X10^3/uL (2.7-7.7); Neutrophil % 82.8 % (47-70); Platelet Count 356 K/mm3 (150-450); RBC Distribution Width CV 13.4 % (11.6-14.6); RBC Distribution Width SD 44.5 fl (35.1-43.9); Red Blood Count 3.67 M/mm3 (4.6-6.2); White Blood Count 16.8 K/mm3 (4.4-11.0)
[2023-08-08 12:40] LABS: International Normalized Ratio 1.3; Prothrombin Time (Protime)PT. 16.2 SECONDS (11.7-14.9)
[2023-08-08 12:41] LABS: Partial Thromboplast Time 32.6 Seconds (24.1-36.2)
[2023-08-08] MEDS: 0.9% Normal Saline (1000mL) 1,000 ML 999 ML IV (12:47)
[2023-08-08 12:48] LABS: ALB/GLOB Ratio 0.6 RATIO (0.9-2.4); AST(SGOT) 14 U/L (15-37); Alanine Aminotransfer ALT/SGPT 24 U/L (16-61); Albumin, Serum 2.7 g/dL (3.2-5.0); Alkaline Phosphatase 70 U/L (45-117); Anion Gap 3 (5-15); BUN 20 mg/dL (7-18); BUN/Creat Ratio 15.7 RATIO (10-20); Calcium,Total 9.1 mg/dL (8.5-10.1); Chloride 102 mmol/L (98-107); Creatinine, Serum 1.27 mg/dL (0.70-1.30); EST Glomerular Filtration Rate 59 mL/min (>60); Est Glom Filt Rate - Afr Amer 71 mL/min (>60); Globulin 4.9 g/dL (2.2-4.2); Glucose 104 mg/dL (74-106); Potassium 3.6 mmol/L (3.5-5.1); Protein, Total 7.6 g/dL (6.4-8.2); Sodium Level 132 mmol/L (136-145)
[2023-08-08 12:58] LABS: Lactic Acid 1.3 mmol/L (0.4-1.9)
[2023-08-08 13:49] LABS: Mucous, Urine 0 SEEN /hpf (<or=2+); Squamous Epithelial Cells - UA 0 SEEN /hpf (0-5)
[2023-08-08 13:50] LABS: Color, Urine Yellow (Yellow); Glucose, Dipstick Normal (Normal); Ketone-Dipstick Negative (Negative); Leukocyte Esterase-Dipstick Negative /ul (Negative); Nitrite-Dipstick Negative (Negative); Occult Blood-Urine 50 /ul (Negative); Protein-Dipstick 30 mg/dl (Negative); Urine Bilirubin Dipstick Negative (Negative); Urine Clarity Sl. Cloudy (Clear); Urine Urobilinogen Normal (Normal)
[2023-08-08 13:59] LABS: Bacteria RARE /hpf (None Seen); Red Blood Cells-Urine 0-5 SEEN /hpf (0-5); White Blood Cells 0-5 SEEN /hpf (0-5)
--- NOTE | 2023-08-08 14:15 | HP.PCM.HOS_ITS ---
HPI - General General Date of Admission: 08/08/23 Date of Service: 08/08/23 Chief Complaint: Scrotal edema, cellulitis, pain, not improving despite outpatient abx therapy. HPI Narrative The patient is a 72 y/o M w/ PMHx: BPH, Hx bladder tumor s/p cystoscopy TUR bladder tumor per Dr. Guevara 07/11/20, HTN, Former tobacco use quit 2009, GERD w ho presents to the [facility] ED on 08/08/23 with history of progressively worsening scrotal swelling as well as erythema and discomfort starting several days prior with urology evaluation on with recommendation for admission however unfortunately his has cancer and he felt like he could not be admitted however patient returns today as it is worsened despite outpatient therapy including Bactrim and ciprofloxacin. Patient with noted worsened discomfort specifically to the L testicle with firmness and severe pain with any palpation. He currently notes discomfort with any movement, attempting to sit down or palpation of the region, dull aching throb more severe sharp discomfort with palpation 10 out of 10 in severity. Patient did report low-grade temperatures the evening prior. Work-up in the ED included T98.6, heart rate 87, BP 122/54, respiratory rate 16, 99% on room air, CBC with WBC 16.8, hemoglobin 0.4, MCV 90.7, platelets 356 with left shift, coags with PT 16.2 otherwise not marked appearing, CMP with sodium 132, BUN/creatinine 20/1.27, hepatic profile not marked appearing, lactic acid 1.3, blood culture x2 pending per ED, testicular US with no evidence of testicular torsion, large septated cystic lesion adjacent to left epididymis likely representing a large epididymal cyst, moderate left hydrocele with septations, urinalysis with no obvious evidence of UTI. ED dis cussed case with Dr. Guevara who referred the patient to the ED for admission and evaluation. In the ED patient ministered 1 L normal saline, Tylenol 1000 mg p.o. x1, IV Rocephin 1 g, oxycodone 5 mg p.o. x1. [facility] Medical History (Updated 08/08/23 @ 14:[address] Regina Jean MD) BPH (benign prostatic hyperplasia) Former tobacco use GERD (gastroesophageal reflux disease) History of bladder cancer HTN (hypertension) Home Medications lisinopril 10 mg-hydrochlorothiazide 12.5 mg tablet 1 ea PO DAILY bp 07/03/20 [History Last Taken Unknown] tamsulosin 0.4 mg capsule 0.4 mg PO QHS 08/08/23 [History Last Taken Unknown] Allergy/AdvReac Type Severity Reaction Status Date / Time amoxicillin [From Augmentin] Allergy PT UNSURE Verified 08/08/23 11:35 OF REACTION clavulanic acid Allergy PT UNSURE Verified 08/08/23 11:35 [From Augmentin] OF REACTION Family History (Updated 08/08/23 @ 14:[address] Regina Jean MD) Mother Hypertension Thyroid disorder Father Diabetes Surgical History (Updated 08/08/23 @ 13:[address] Regina Jean MD) History of bladder surgery Hx of colonoscopy S/P repair of hydrocele Social History (Updated 08/08/23 @ 13:[address] Regina Jean MD) household members: spouse Smoking Status: Former smoker how long ago did patient quit smoking: Quit 2009. substance use type: does not use ROS ROS Narrative Admission Review of Systems: CONSTITUTIONAL: No weight loss, chills, + low-grade temperatures, weakness or fatigue. HEENT: Eyes: No visual loss, blurred vision, double vision or yellow sclerae. Ears, Nose, Throat: No hearing loss, sneezing, congestion, runny nose or sore throat. SKIN: No rash or itching, lesions, wounds except for as noted significant scrotal erythema, see . CARDIOVASCULAR: No chest pain, chest pressure or chest discomfort, palpitations, edema, orthopnea, syncopal events. RESPIRATORY: No shortness of breath, cough or sputum, wheezing, hemoptysis. GASTROINTESTINAL: No anorexia, nausea, vomiting or diarrhea, abdominal pain, melena, BRBPR. GENITOURINARY: + Significant scrotal swelling, erythema, pain to palpation with no dysuria, frequency, urgency or retention. NEUROLOGICAL: No headache, dizziness, syncope, paralysis, ataxia, numbness or tingling in the extremities, focal weakness, change in bowel or bladder control, seizure. MUSCULOSKELETAL: + muscle, back pain, joint pain or stiffness. HEMATOLOGIC: + anemia, easy bleeding or bruising. LYMPHATICS: No enlarged nodes. No history of splenectomy. PSYCHIATRIC: No history of depression or anxiety. ENDOCRINOLOGIC: No reports of sweating, cold or heat intolerance. No polyuria or polydipsia. ALLERGIES: No history of asthma, hives, eczema or rhinitis. Vital Signs Vital Signs Vital Signs: 08/08/23 11:35 08/08/23 12:07 08/08/23 11:37 Temperature 98.6 F 98 F Temperature Source Temporal Temporal Pulse Rate 87 83 Respiratory Rate 16 18 Blood Pressure 122/54 H 124/72 H Blood Pressure Mean 76 89 Pulse Ox 99 98 Oxygen Delivery Method Room Air Room Air 08/08/23 12:37 Temperature 98 F Temperature Source Temporal Pulse Rate 82 Respiratory Rate 18 Blood Pressure 122/68 H Blood Pressure Mean 86 Pulse Ox 98 Oxygen Delivery Method Weight Weight: 133 lb 14.4 oz Body Mass Index (BMI) 19.8 Physical Exam Narrative Physical Examination: General: Awake, alert, oriented x 3 and cooperative, seated upright in the ED bed, fatigued, uncomfortable with any movement attempts and with evaluation of the scrotal region. Skin: Normal color, normal turgor, no icterus, no cyanosis except for significant scrotal edema, more so on the left than the right with erythema and tenderness to palpation. HEENT: AT/NC, EOMI, PERRLA, mildly dry MM, no carotid bruits or JVD noted. Lungs: Mildly diminished, greater bases, proper effort, no rales, ronchi or wheezing. Heart: Regular rate and rhythm; no gallop, rub audible. Abdomen: Soft, NTTP, ND, mildly hyperactive BS, no HSM. : Significant scrotal as well as peripenile erythema, warmth to touch, significant edema worse to the left scrotal region. Extremities: No cyanosis, clubbing, or edema. Neurological: Patient awake, alert, oriented as noted, cognitive function intact ; pupils equally reactive to light and accommodation, cranial nerves II-XII grossly normal, moving all 4 extremities, no focal deficits, strength moderately to severely global decrease secondary to acute presentation complaints Psychiatric: Affect appears fatigued, uncomfortable especially with any movement and palpation of the testicles, no acute evidence of depressive or anxiety feelings. Results Lab / Micro Data 08/08/23 12:20 08/08/23 12:20 Labs: Laboratory Results - last 24 hr 08/08/23 12:20: WBC 16.8 H, RBC 3.67 L, Hgb 11.4 L, Hct 33.3 L, MCV 90.7, MCH 31.1, MCHC 34.2, RDW Std Deviation 44.5 H, RDW Coeff of Jerica 13.4, Plt Count 356, MPV 8.8, Immature Gran % (Auto) 0.500, Neut % (Auto) 82.8 H, Lymph % (Auto) 7.5 L, [place] % (Auto) 8.8, Eos % (Auto) 0.2, Baso % (Auto) 0.2, Absolute Neuts (auto) 13.9 H, Absolute Lymphs (auto) 1.26, Nucleated RBC % 0, PT 16.2 H, INR 1.3, APTT 32.6, Sodium 132 L, Potassium 3.6, Chloride 102, Carbon Dioxide 27.0, Anion Gap 3 L, BUN 20 H, Creatinine 1.27, Estim Creat Clear Calc 44.50, Est GFR (MDRD) Af Amer 71, Est GFR (MDRD) Non-Af 59 L, BUN/Creatinine Ratio 15.7, Glucose 104, Lac tic Acid 1.3, Calcium 9.1, Total Bilirubin 0.60, AST 14 L, ALT 24, Alkaline P hosphatase 70, Total Protein 7.6, Albumin 2.7 L, Globulin 4.9 H, Albumin/Globulin Ratio 0.6 L 08/08/23 13:44: Urine Color Yellow, Urine Clarity Sl. Cloudy, Urine pH 7.0, Ur Specific [place] 1.010, Urine Protein 30 H, Urine Glucose (UA) Normal, Urine Ketones Negative, Urine Occult Blood 50 H, Urine Nitrite Negative, Urine Bilirubin Negative, Urine Urobilinogen Normal, Ur Leukocyte Esterase Negative, Urine RBC 0-5 SEEN, Urine WBC 0-5 SEEN, Ur Squamous Epith Cells 0 SEEN, Urine Bacteria RARE, Urine Mucus 0 SEEN Radiology Impression Testicular Ultrasound 08/08/23 12:06 IMPRESSION: 1. No evidence of testicular torsion at the time this examination was performed. 2. Large septated cystic lesion adjacent to the left epididymis likely representing large epididymal cyst. Loculated adjacent cysts are seen is less likely but possible. 3. Moderate left hydrocele with septations. Electronically Signed: Casper Francis MD at 13:57 EDT , Assessment & Plan Assessment/Plan (1) Cellulitis of scrotum: PLAN: Plan The patient is a 72 y/o M w/ PMHx: BPH, Hx bladder tumor s/p cystoscopy TUR bladder tumor per Dr. Guevara 07/11/20, HTN, Former tobacco use quit 2009, GERD who presents to the [facility] ED on 08/08/23 with history of progressively worsening scrotal swelling as well as erythema and discomfort starting several days prior with urology evaluation on with recommendation for admission however unfortunately his has cancer and he felt like he could not be admitted however patient returns today as it is worsened despite outpatient therapy including Bactrim and ciprofloxacin. #1. Scrotal Cellulitis, Failed outpatient abx therapy, Worsening w/ large septated cystic lesion adjacent to the left epididymis suspected possibly a large epididymal cyst as well as a moderate left hydrocele with septations: Will admit to [facility], maintain on IV Rocephin and IV Doxycycline to be cautious but may de-escalate per Urology discretion and will defer Urological labs to their preference but will initially obtain N.reji/C. trach however patient does deny active sexual activity at this point but to be cautious we will still obtain in a de-escalate antibiotic therapy pending results in addition to deferral of antibiotic change per urology discretion also, plan repeat CBC in AM, continue scrotal elevation with pillow as well as sheet underneath when seated and in bed, will apply ice, will administer scheduled toradol, will monitor erythema outline with VS checks. #2. Hx bladder tumor: s/p cystoscopy TUR bladder tumor per Dr. Guevara 07/11/20, considered in remission. #3. Hypertension: Continue home regimen including lisinopril, given presentation we will hold hydrochlorothiazide component temporarily and add back once appropriate, PRN hydralazine. #4. Normocytic anemia, unclear chronicity: Admission Hgb 11.4, MCV 90.7, prior baseline normal level, last labs however from 2020, will continue trend. #5. GERD: From current list not on chronic regimen, will have PRN mylanta. #6. Former tobacco use: Continued tobacco cessation. #7. BPH: We will continue patient on Flomax regimen. #8. DVT prophylaxis: Lovenox. #9. CODE status: Patient HCPOA and LW are not in place. Patient's is present would be his decision-maker if he was unable. Full Code status. Charges/Coding Visit Charges Inpatient E&M: 19132 Init Hosp L3
--- NOTE | 2023-08-08 15:03 | NURSING ---
MED SURG WHITE SCOTRAL CELLULITIS,,LEUKOCYTOSIS
[2023-08-08] MEDS: Ketorolac 30 MG/ML Syringe 15 MG IV (18:56)
[2023-08-08] MEDS: Doxycycline 100 MG in Dextrose 5%-Water (250mL Bag) 250 ML 250 MG IV (18:57)
[2023-08-08] MEDS: 0.9% Normal Saline (1000mL) 1,000 ML 125 ML IV (18:57)
[2023-08-08] MEDS: Tamsulosin HCl 0.4 MG Capsule PO (21:49)
[2023-08-08] MEDS: Ensure Plus High Protein 120 ML LIQUID PO (21:49)
[2023-08-09 03:00] VITALS: BP 110/50; PULSE 94; RESP 16; TEMP 37.3; O2SAT 97
[2023-08-09 05:16] LABS: Absolute Lymphocyte Count 1.25 X10^3/uL (0.83-4.51); Absolute Neutrophil Count 7.3 X10^3/uL (2.0-7.7); Basophil# 0.03 X10^3/uL; Basophil% 0.3 % (0-1); Eosinophil# 0.14 X10^3/uL; Eosinophils% 1.4 % (0-5); Hematocrit 30.4 % (40-54); Hemoglobin 10.1 g/dL (13.0-16.5); Lymphocyte # 1.25 X10^3/ul (0.83-4.51); Lymphocyte % 12.4 % (19-41); Mean Corp Hgb Conc 33.2 g/dL (32-36); Mean Corpuscular Hgb 30.5 pg (27.0-32.0); Mean Corpuscular Volume 91.8 fL (80-94); Monocyte# 1.27 X10^3/uL; Monocyte% 12.6 % (0-10); NRBC Flagged by Analyzer 0 % (0-5); Neutrophil # 7.34 X10^3/uL (2.7-7.7); Neutrophil % 72.9 % (47-70); Platelet Count 350 K/mm3 (150-450); RBC Distribution Width CV 13.7 % (11.6-14.6); RBC Distribution Width SD 46.3 fl (35.1-43.9); Red Blood Count 3.31 M/mm3 (4.6-6.2); White Blood Count 10.1 K/mm3 (4.4-11.0)
[2023-08-09 05:56] LABS: ALB/GLOB Ratio 0.5 RATIO (0.9-2.4); AST(SGOT) 28 U/L (15-37); Alanine Aminotransfer ALT/SGPT 27 U/L (16-61); Albumin, Serum 2.1 g/dL (3.2-5.0); Alkaline Phosphatase 60 U/L (45-117); Anion Gap 5 (5-15); BUN 24 mg/dL (7-18); BUN/Creat Ratio 21.1 RATIO (10-20); Chloride 106 mmol/L (98-107); Creatinine, Serum 1.14 mg/dL (0.70-1.30); EST Glomerular Filtration Rate 67 mL/min (>60); Est Glom Filt Rate - Afr Amer 81 mL/min (>60); Estimated Creatinine Clearance 51.84 ml/min; Globulin 4.1 g/dL (2.2-4.2); Glucose 106 mg/dL (74-106); Potassium 3.6 mmol/L (3.5-5.1); Protein, Total 6.2 g/dL (6.4-8.2); Sodium Level 135 mmol/L (136-145)
[2023-08-09 06:00] VITALS: BMI 21.1
[2023-08-09] MEDS: Ketorolac 30 MG/ML Syringe 15 MG IV ×3 (06:44→21:06)
[2023-08-09 08:09] VITALS: BP 117/58; PULSE 83; RESP 17; TEMP 37.3; O2SAT 98
[2023-08-09 08:10] VITALS: O2SAT 95
[2023-08-09] MEDS: 0.9% Saline Lock 10 ML Syringe IV ×3 (08:35→21:07)
[2023-08-09] MEDS: Lisinopril 10 MG Tablet PO (08:36)
[2023-08-09] MEDS: Ceftriaxone 1 GM/50 ML BAG IV (08:36)
[2023-08-09] MEDS: 0.9% Normal Saline (250mL Bag) 250 ML 15 ML IV (08:37)
[2023-08-09] MEDS: Enoxaparin 40 MG/0.4 ML Syringe SC (08:38)
[2023-08-09] MEDS: Ensure Plus High Protein 120 ML LIQUID PO ×4 (08:41→20:47)
--- NOTE | 2023-08-09 08:54 | PCM.CONS.U ---
HPI Consult Data Date of Consult: 08/09/23 HPI Narrative Reason for Consultation: Left orchitis cellulitis of the scrotum HPI Narrative: NURA HOLMAN, is a 72 M who presents to the emergency room with left severe scrotal pain and cellulitis he has failed outpatient management I saw him in the office earlier this week and recommended admission to the hospital for IV antibiotics however he needed to take his up to [place] for some cancer treatments so he declined admission. He then presented to the ER in severe pain on the left side with a left swollen testicle and a reactive hydrocele. He was admitted to the hospital and he has been put on broad-spectrum antibiotics and this morning the redness is much better and is much less tender in the left side still swollen from the hydrocele that reactive this may go away on its own. Continue with IV antibiotics per hospitalist recommendation. No surgical intervention at this point is necessary. The hydrocele may resolve on its own or he may need to have the hydrocele removed later on if it does not resolve on its own. [facility] Medical History (Updated 08/08/23 @ 15:00 by RAJNI Kemp) BPH (benign prostatic hyperplasia) Former tobacco use GERD (gastroesophageal reflux disease) History of bladder cancer HTN (hypertension) Home Medications lisinopril 10 mg-hydrochlorothiazide 12.5 mg tablet 1 ea PO DAILY bp 07/03/20 [History Last Taken Unknown] tamsulosin 0.4 mg capsule 0.4 mg PO QHS 08/08/23 [History Last Taken Unknown] Allergy/AdvReac Type Severity Reaction Status Date / Time amoxicillin [From Augmentin] Allergy PT UNSURE Verified 08/08/23 11:35 OF REACTION clavulanic acid Allergy PT UNSURE Verified 08/08/23 11:35 [From Augmentin] OF REACTION Family History (Updated 08/08/23 @ 14:[address] Regina Jean MD) Mother Hypertension Thyroid disorder Father Diabetes Surgical History (Updated 08/08/23 @ 13:[address] Regina Jean MD) History of bladder surgery Hx of colonoscopy S/P repair of hydrocele Social History (Updated 08/08/23 @ 13:[address] Regina Jean MD) household members: spouse Smoking Status: Former smoker how long ago did patient quit smoking: Quit 2009. substance use type: does not use Lab / Micro Data 08/09/23 04:31 08/09/23 04:31 Labs: Laboratory Results - last 24 hr 08/08/23 12:20: WBC 16.8 H, RBC 3.67 L, Hgb 11.4 L, Hct 33.3 L, MCV 90.7, MCH 31.1, MCHC 34.2, RDW Std Deviation 44.5 H, RDW Coeff of [place] 13.4, Plt Count 356, MPV 8.8, Immature Gran % (Auto) 0.500, Neut % (Auto) 82.8 H, Lymph % (Auto) 7.5 L, [place] % (Auto) 8.8, Eos % (Auto) 0.2, Baso % (Auto) 0.2, Absolute Neuts (auto) 13.9 H, Absolute Lymphs (auto) 1.26, Nucleated RBC % 0, PT 16.2 H, INR 1.3, APTT 32.6, Sodium 132 L, Potassium 3.6, Chloride 102, Carbon Dioxide 27.0, Anion Gap 3 L, BUN 20 H, Creatinine 1.27, Estim Creat Clear Calc 44.50, Est GFR (MDRD) Af Amer 71, Est GFR (MDRD) Non-Af 59 L, BUN/Creatinine Ratio 15.7, Glucose 104, Lactic Acid 1.3, Calcium 9.1, Total Bilirubin 0.60, AST 14 L, ALT 24, Alkaline Phosphatase 70, Total Protein 7.6, Albumin 2.7 L, Globulin 4.9 H, Albumin/Globulin Ratio 0.6 L 08/08/23 13:44: Urine Color Yellow, Urine Clarity Sl. Cloudy, Urine pH 7.0, Ur Specific [place] 1.010, Urine Protein 30 H, Urine Glucose (UA) Normal, Urine Ketones Negative, Urine Occult Blood 50 H, Urine Nitrite Negative, Urine Bilirubin Negative, Urine Urobilinogen Normal, Ur Leukocyte Esterase Negative, Urine RBC 0-5 SEEN, Urine WBC 0-5 SEEN, Ur Squamous Epith Cells 0 SEEN, Urine Bacteria RARE, Urine Mucus 0 SEEN 08/09/23 04:31: WBC 10.1, RBC 3.31 L, Hgb 10.1 L, Hct 30.4 L, MCV 91.8, MCH 30.5, MCHC 33.2, RDW Std Deviation 46.3 H, RDW Coeff of [place] 13.7, Plt Count 350, MPV 9.0, Immature Gran % (Auto) 0.400, Neut % (Auto) 72.9 H, Lymph % (Auto) 12.4 L, [place] % (Auto) 12.6 H, Eos % (Auto) 1.4, Baso % (Auto) 0.3, Absolute Neuts (auto) 7.3, Absolute Lymphs (auto) 1.25, Nucleated RBC % 0, Sodium 135 L, Potassium 3.6, Chloride 106, Carbon Dioxide 24.0, Anion Gap 5, BUN 24 H, Creatinine 1.14, Estim Creat Clear Calc 51.84, Est GFR (MDRD) Af Amer 81, Est GFR (MDRD) Non-Af 67, BUN/Creatinine Ratio 21.1 H, Glucose 106, Calcium 8.0 L, Total Bilirubin 0.30, AST 28, ALT 27, Alkaline Phosphatase 60, Total Protein 6.2 L, Albumin 2.1 L, Globulin 4.1, Albumin/Globulin Ratio 0.5 L Micro: Microbiology 08/08/23 15:20 Urine, Clean Catch Chlamydia trachomatis (PCR) - Final 08/08/23 15:20 Urine, Clean Catch Neisseria gonorrhoeae (PCR) - Final Radiology Impression Testicular Ultrasound 08/08/23 12:06 IMPRESSION: 1. No evidence of testicular torsion at the time this examination was performed. 2. Large septated cystic lesion adjacent to the left epididymis likely representing large epididymal cyst. Loculated adjacent cysts are seen is less likely but possible. 3. Moderate left hydrocele with septations. Electronically Signed: Casper Francis MD at 13:57 EDT ,
--- NOTE | 2023-08-09 10:55 | PCM.PN.HOSP ---
Reason for Visit Reason for Visit: Diagnoses Inflammatory disorders of scrotum (08/08/23) Subjective Subjective Follow-up for scrotal cellulitis. Temperature 99.2 ?F. Objective Data Objective Data Vital Signs: Vital Signs Temp Pulse Resp BP Pulse Ox O2 Del Method 99.1 F 83 17 117/58 L 95 Room Air 08/09/23 08:09 08/09/23 08:09 08/09/23 08:09 08/09/23 08:09 08/09/23 08:10 08/09/23 08:10 Oxygen Delivery Method Room Air Weight: 142 lb 10.225 oz Body Mass Index (BMI) 21.1 Intake & Output: Intake and Output for Last 24 Hours 08/07/23 08/08/23 08/09/23 23:59 23:59 23:59 Intake Total 1310 / 1590 1331.5 / 1331.5 Balance 1310 / 1590 1331.5 / 1331.5 Lab / Micro Data 08/09/23 04:31 08/09/23 04:31 Labs: Laboratory Results - last 24 hr 08/08/23 12:20: WBC 16.8 H, RBC 3.67 L, Hgb 11.4 L, Hct 33.3 L, MCV 90.7, MCH 31.1, MCHC 34.2, RDW Std Deviation 44.5 H, RDW Coeff of Jerica 13.4, Plt Count 356, MPV 8.8, Immature Gran % (Auto) 0.500, Neut % (Auto) 82.8 H, Lymph % (Auto) 7.5 L, Mower % (Auto) 8.8, Eos % (Auto) 0.2, Baso % (Auto) 0.2, Absolute Neuts (auto) 13.9 H, Absolute Lymphs (auto) 1.26, Nucleated RBC % 0, PT 16.2 H, INR 1.3, APTT 32.6, Sodium 132 L, Potassium 3.6, Chloride 102, Carbon Dioxide 27.0, Anion Gap 3 L, BUN 20 H, Creatinine 1.27, Estim Creat Clear Calc 44.50, Est GFR (MDRD) Af Amer 71, Est GFR (MDRD) Non-Af 59 L, BUN/Creatinine Ratio 15.7, Glucose 104, Lactic Acid 1.3, Calcium 9.1, Total Bilirubin 0.60, AST 14 L, ALT 24, Alkaline Phosphatase 70, Total Protein 7.6, Albumin 2.7 L, Globulin 4.9 H, Albumin/Globulin Ratio 0.6 L 08/08/23 13:44: Urine Color Yellow, Urine Clarity Sl. Cloudy, Urine pH 7.0, Ur Specific [place] 1.010, Urine Protein 30 H, Urine Glucose (UA) Normal, Urine Ketones Negative, Urine Occult Blood 50 H, Urine Nitrite Negative, Urine Bilirubin Negative, Urine Urobilinogen Normal, Ur Leukocyte Esterase Negative, Urine RBC 0-5 SEEN, Urine WBC 0-5 SEEN, Ur Squamous Epith Cells 0 SEEN, Urine Bacteria RARE, Urine Mucus 0 SEEN 08/09/23 04:31: WBC 10.1, RBC 3.31 L, Hgb 10.1 L, Hct 30.4 L, MCV 91.8, MCH 30.5, MCHC 33.2, RDW Std Deviation 46.3 H, RDW Coeff of Jerica 13.7, Plt Count 350, MPV 9.0, Immature Gran % (Auto) 0.400, Neut % (Auto) 72.9 H, Lymph % (Auto) 12.4 L, Mower % (Auto) 12.6 H, Eos % (Auto) 1.4, Baso % (Auto) 0.3, Absolute Neuts (auto) 7.3, Absolute Lymphs (auto) 1.25, Nucleated RBC % 0, Sodium 135 L, Potassium 3.6, Chloride 106, Carbon Dioxide 24.0, Anion Gap 5, BUN 24 H, Creatinine 1.14, Estim Creat Clear Calc 51.84, Est GFR (MDRD) Af Amer 81, Est GFR (MDRD) Non-Af 67, BUN/Creatinine Ratio 21.1 H, Glucose 106, Calcium 8.0 L, Total Bilirubin 0.30, AST 28, ALT 27, Alkaline Phosphatase 60, Total Protein 6.2 L, Albumin 2.1 L, Globulin 4.1, Albumin/Globulin Ratio 0.5 L Micro: Microbiology 08/08/23 15:20 Urine, Clean Catch Chlamydia trachomatis (PCR) - Final 08/08/23 15:20 Urine, Clean Catch Neisseria gonorrhoeae (PCR) - Final Radiography Diagnostic Testing: Radiology Impression Testicular Ultrasound 08/08/23 12:06 IMPRESSION: 1. No evidence of testicular torsion at the time this examination was performed. 2. Large septated cystic lesion adjacent to the left epididymis likely representing large epididymal cyst. Loculated adjacent cysts are seen is less likely but possible. 3. Moderate left hydrocele with septations. Electronically Signed: Casper Francis MD at 13:57 EDT , Physical Exam Narrative Seen and examined. Patient admitted with fever from scrotal cellulitis. Had right-sided hydrocele operated before. Physical exam General: Alert, Oriented x3, Cooperative HEENT: Atraumatic, PERRLA, EOMI, Normocephalic Oral: No Gingival or Mucosal Lesions/ Ulcerations Neck: Supple, No JVD, Negative Carotid Bruits Lungs: Air entry diminished in bilateral lung bases. No crepitation/rhonchi Cardiovascular: Regular rate, Regular Rhythm, Normal S1, Normal S2, No murmurs Abdomen: Bowel Sounds Present, Soft, Non Tender, Non-Distended : Left-sided hydrocele, being about 8 to 10 cm. Inflammatory signs including redness erythema, tenderness and induration present. Status post right hydrocelectomy. No renal angle tenderness. No suprapubic tenderness. Extremities: No edema, Capillary Refill Less than 3 Seconds Skin: No rashes, No breakdown Musculoskeletal: No Tenderness to Palpation of Joints or Extremities Neurological: Cranial nerves II-XII grossly intact, DTR 2+/4. No acute focal neurological deficit. Psych/Mental Status: Normal Affect, Appropriate. Assessment & Plan Assessment/Plan (1) Cellulitis of scrotum: PLAN: Plan The patient is a 72 y/o M admitted with fever due to scrotal cellulitis with left hydrocele. #1. Scrotal Cellulitis, Failed outpatient abx therapy, from large septated left epididymal cyst loculated adjacent cysts: Testicular ultrasound shows large septated cystic lesion adjacent to the left epididymis representing large epididymal cyst as well as a moderate left hydrocele with septations: Patient is being admitted to [facility] floor. Patient is on IV ceftriaxone. As an outpatient patient was tried Cipro but patient continued to have fever and worsening of cellulitis. Today feels improvement in pain and swelling. Patient was seen by urologist Dr. Guevara advised to continue same. #2. Hx bladder tumor: s/p cystoscopy TUR bladder tumor per Dr. Guevara 07/11/20, considered in remission. #3. Hypertension: Continue home regimen including lisinopril, given presentation we will hold hydrochlorothiazide component temporarily and add back once appropriate, PRN hydralazine. #4. Normocytic anemia, unclear chronicity: Admission Hgb 11.4, MCV 90.7, prior baseline normal level, last labs however from 2020, will continue trend. #5. GERD: From current list not on chronic regimen, will have PRN mylanta. #6. Former tobacco use: Continued tobacco cessation. #7. BPH: continue patient on Flomax regimen. #8. DVT prophylaxis: Lovenox. #9. CODE status: Patient HCPOA and LW are not in place. Patient's is present would be his decision-maker if he was unable. Full Code status. Clinical Impression(s) from Imaging Studies Testicular Ultrasound 08/08/23 12:06 IMPRESSION: 1. No evidence of testicular torsion at the time this examination was performed. 2. Large septated cystic lesion adjacent to the left epididymis likely representing large epididymal cyst. Loculated adjacent cysts are seen is less likely but possible. 3. Moderate left hydrocele with septations. Charges/Coding Visit Charges Inpatient E&M: 71790 Subs Hosp L2
[2023-08-09] MEDS: Doxycycline 100 MG in Dextrose 5%-Water (250mL Bag) 250 ML 250 MG IV ×2 (11:52→21:14)
[2023-08-09 14:38] VITALS: BP 124/60; PULSE 90; RESP 18; TEMP 38.2; O2SAT 96
[2023-08-09] MEDS: Potassium Chloride Oral Tablet 20 MEQ 40 MEQ PO (14:43)
[2023-08-09] MEDS: Acetaminophen 325 MG Tablet 650 MG PO (15:23)
[2023-08-09 18:00] VITALS: BP 127/69; PULSE 78; RESP 18; TEMP 36.8; O2SAT 98
--- NOTE | 2023-08-09 18:18 | NURSING ---
This Nurse is aware of recent set of Vitals taken by [facility] [employer].
[2023-08-09] MEDS: Tamsulosin HCl 0.4 MG Capsule PO (21:07)
[2023-08-09 21:17] VITALS: BP 108/55; PULSE 81; RESP 18; TEMP 37.4; O2SAT 98
[2023-08-10 02:15] VITALS: BP 126/60; PULSE 90; RESP 16; TEMP 37.6; O2SAT 97
[2023-08-10 05:41] VITALS: BMI 21.0
[2023-08-10 06:00] VITALS: BMI 21.0
--- NOTE | 2023-08-10 07:27 | PCM.CONS.B ---
Consult Date of Consult: 08/10/23 Reason for Consult Patient is feeling much better, swelling in the testicle is gone down still has a reactive hydrocele, but no more tenderness on exam no tenderness no fluctuance no mass no abscess continues with a reactive hydrocele. He probably can go home with antibiotics and follow-up in my office may have to consider doing a hydrocelectomy later on if it does not resolve on its own.
--- NOTE | 2023-08-10 08:33 | CASEMGMT ---
Social Work Per patient's chart, patient does not have HCPOA or LW documents and is aware patient's would be decision maker. Geneva Amaya FROG CATCHER, MARIO
[2023-08-10 08:46] VITALS: BP 134/65; PULSE 89; RESP 18; TEMP 37.6; O2SAT 99
[2023-08-10] MEDS: Lisinopril 10 MG Tablet PO (08:49)
[2023-08-10] MEDS: Doxycycline 100 MG in Dextrose 5%-Water (250mL Bag) 250 ML IV (08:53)
[2023-08-10] MEDS: 0.9% Saline Lock 10 ML Syringe IV (08:53)
--- NOTE | 2023-08-10 10:08 | CASEMGMT ---
DUDLEY GAITAN Face to Face with patient for initial transition planning/care coordination assessment. DUDLEY GAITAN introduced self and role at [facility]. Patient lying in bed, alert and oriented. Patient willing to participate in assessment and is able to answer all questions appropriately. Care providers, pharmacy, and demographics verified. Patient wishes to discharge home. Patient states he has no further needs or concerns at this time. CM to follow for discharge planning needs that may arise. PCP:Janet Specialists:og Guevara Preferred Pharmacy:[facility] Insurance:[employer] [place] [employer] Prescription Benefit: yes LNOK:Ching Willian Living Arrangements:Pt lives with in a single story home with 6 steps to enter with a rail. Pt reports he is I in ADL's and denies concerns at home. Transportation: Pt drives self and denies concerns with transportation. DME:None HHC:None SNF:None Disposition Plan: Home, pt to follow up with
--- NOTE | 2023-08-10 10:09 | DCINST_ITS ---
Discharge Instructions Diet Discharge Diet: No restrictions Activity Discharge Activity: Return to Normal Activity Weight Bearing Status: Weight bearing as tolerated Dressing / Incision Call your doctor if you observe: Fever of 101 or Higher, Coldness, Increased Pain, Numbness or Tingling, Change in Color, Inability to urinate, Inability to have a bowel movement, Using more than 1 pad per hour, Shortness of breath, Dizziness, Fainting spells, Swelling in the ankles, Chest pain, Prolonged hiccupping, Increased palpitations (irregular heartbeat) and Calf discomfort Follow Up Care When: IN 2 WEEKS Test Results: Test results from this visit will be discussed in further detail at your follow- up appointment, if applicable. Discharge Plan Admission Admit Date/Time: 08/08/23 14:16 Attending Provider: Russell Valenzuela Primary Care Provider: Paresh Connelly Consulting Providers: Ceasar Guevara; Regina Jean Discharge Orders/Prescriptions Prescriptions: New sennosides-docusate sodium [Stool Softener-Stimulant Laxat] 8.6-50 mg Tablet 2 tab PO BID PRN PRN (Reason: Constipation) Qty: 0 0RF cephalexin 500 mg capsule 500 mg PO Q8H 6 Days Qty: 18 0RF Continued lisinopril-hydrochlorothiazide 1 EACH tablet 1 ea PO DAILY tamsulosin 0.4 mg capsule 0.4 mg PO QHS Patient Comments: TAKE 1 CAPSULE BY MOUTH EVERYDAY AT BEDTIME Referrals / Follow Up: Paresh Connelly DO [Primary Care Provider] - Ceasar Guevara MD [Med Staff - Active Staff] - Within 2 Weeks Disposition Disposition (needs filled in before D/C Order can be placed): Home, Self Care
--- NOTE | 2023-08-10 10:15 | DS.PCM_ITS ---
Providers Date of Admission: 08/08/23 Date of Discharge: 08/10/23 Primary Care Physician: Dr. Paresh Connelly, DO Consultations 08/08/23 17:39 Consult: Urology Routine Consulting Provider: Ceasar Guevara Reason for Consult: Scrotal cellulitis EMERGENT Consult: No MD Notified: Yes Date Notified: 08/08/23 Time Notified: 14:18 Method of Notification: ED Physician Initiated Reason For Visit: SCROTAL CELLULITIS,FAILED OUTPATIENT ABX Diagnosis Discharge Diagnosis (1) Cellulitis of scrotum: Status: Acute Code(s): N49.2 - Inflammatory disorders of scrotum Plan The patient is a 72 y/o M admitted with fever due to scrotal cellulitis with left hydrocele. #1. Scrotal Cellulitis, Failed outpatient abx therapy, from large septated left epididymal cyst loculated adjacent cysts: Testicular ultrasound shows large septated cystic lesion adjacent to the left epididymis representing large epididymal cyst as well as a moderate left hydrocele with septations: [facility] Patient is on IV ceftriaxone. As an outpatient patient was tried Cipro but patient continued to have fever and worsening of cellulitis. Today feels improvement in pain and swelling. Patient was seen by urologist Dr. Guevara advised to continue same. 08/10: Patient swelling of left testicle is much improved. Significant improvement in tenderness, cystic consistency with no mass or abscess on exam. Patient is discharged on 6 more days of Keflex to complete total of 7 days of antibiotic and follow-up in urology clinic with Dr. Guevara. #2. Hx bladder tumor: s/p cystoscopy TUR bladder tumor per Dr. Guevara 07/11/20, considered in remission. #3. Hypertension: Continue home regimen including lisinopril, given presentation we will hold hydrochlorothiazide component temporarily and add back once appropriate, PRN hydralazine. #4. Normocytic anemia, unclear chronicity: Admission Hgb 11.4, MCV 90.7, prior baseline normal level, last labs however from 2020, will continue trend. #5. GERD: From current list not on chronic regimen, will have PRN mylanta. #6. Former tobacco use: Continued tobacco cessation. #7. BPH: continue patient on Flomax regimen. #8. DVT prophylaxis: Lovenox. #9. CODE status: Patient HCPOA and LW are not in place. Patient's is present would be his decision-maker if he was unable. Full Code status. Clinical Impression(s) from Imaging Studies Testicular Ultrasound 08/08/23 12:06 IMPRESSION: 1. No evidence of testicular torsion at the time this examination was performed. 2. Large septated cystic lesion adjacent to the left epididymis likely representing large epididymal cyst. Loculated adjacent cysts are seen is less likely but possible. 3. Moderate left hydrocele with septations. Medications at Discharge Home Medications lisinopril 10 mg-hydrochlorothiazide 12.5 mg tablet 1 ea PO DAILY bp 07/03/20 tamsulosin 0.4 mg capsule 0.4 mg PO QHS 08/08/23 cephalexin 500 mg capsule 500 mg PO Q8H 6 days #18 caps 08/10/23 sennosides 8.6 mg-docusate sodium 50 mg tablet (Stool Softener-Stimulant Laxative) 2 tab PO BID PRN PRN Constipation #0 tabs 08/10/23 Physical Exam Narrative Seen and examined. Patient admitted with fever from scrotal cellulitis. Had right-sided hydrocele operated before. Physical exam General: Alert, Oriented x3, Cooperative HEENT: Atraumatic, PERRLA, EOMI, Normocephalic Oral: No Gingival or Mucosal Lesions/ Ulcerations Neck: Supple, No JVD, Negative Carotid Bruits Lungs: Air entry diminished in bilateral lung bases. No crepitation/rhonchi Cardiovascular: Regular rate, Regular Rhythm, Normal S1, Normal S2, No murmurs Abdomen: Bowel Sounds Present, Soft, Non Tender, Non-Distended : Left-sided hydrocele, being about 8 to 10 cm. Inflammatory signs including redness erythema, tenderness and induration present. Status post right hydrocelectomy. No renal angle tenderness. No suprapubic tenderness. Extremities: No edema, Capillary Refill Less than 3 Seconds Skin: No rashes, No breakdown Musculoskeletal: No Tenderness to Palpation of Joints or Extremities Neurological: Cranial nerves II-XII grossly intact, DTR 2+/4. No acute focal neurological deficit. Psych/Mental Status: Normal Affect, Appropriate. Weight / BMI Weight Weight: 141 lb 15.643 oz Body Mass Index (BMI) 21.0 ABG / Lab / Microbiology Data 08/09/23 04:31 08/09/23 04:31 Microbiology: Microbiology 08/08/23 13:44 Urine, Clean Catch Urine Culture - Final Culture exhibits no growth. 08/08/23 15:20 Urine, Clean Catch Chlamydia trachomatis (PCR) - Final 08/08/23 15:20 Urine, Clean Catch Neisseria gonorrhoeae (PCR) - Final D/C Instructions Discharge Diet: No restrictions Weight Bearing Status: Weight bearing as tolerated Call your doctor if you observe: Fever of 101 or Higher, Coldness, Increased Pain, Numbness or Tingling, Change in Color, Inability to urinate, Inability to have a bowel movement, Using more than 1 pad per hour, Shortness of breath, Dizziness, Fainting spells, Swelling in the ankles, Chest pain, Prolonged hiccupping, Increased palpitations (irregular heartbeat) and Calf discomfort When: IN 2 WEEKS Meaningful Use Info Meaningful Use Diagnoses (Choose all that apply): None applicable Discharge Plan Admission Admit Date/Time: 08/08/23 14:16 Primary Reason for Your Visit: Left scrotal cellulitis Attending Provider: Russell Valenzuela Primary Care Provider: Lopez Gonzales Consulting Providers: Ceasar Guevara; Regina Jean Discharge Orders/Prescriptions Prescriptions: New sennosides-docusate sodium [Stool Softener-Stimulant Laxat] 8.6-50 mg Tablet 2 tab PO BID PRN PRN (Reason: Constipation) Qty: 0 0RF cephalexin 500 mg capsule 500 mg PO Q8H 6 Days Qty: 18 0RF Continued lisinopril-hydrochlorothiazide 1 EACH tablet 1 ea PO DAILY tamsulosin 0.4 mg capsule 0.4 mg PO QHS Patient Comments: TAKE 1 CAPSULE BY MOUTH EVERYDAY AT BEDTIME Referrals / Follow Up: Ceasar Guevara MD [Med Staff - Active Staff] - Within 2 Weeks Paresh Connelly DO [Non-Staff] - Disposition Disposition (needs filled in before D/C Order can be placed): Home, Self Care Charges/Coding Visit Charges Inpatient E&M: 41168 Disch Hosp >30min
[2023-08-10] MEDS: Ceftriaxone 1 GM/50 ML BAG IV (10:29)
--- NOTE | 2023-08-10 10:32 | NURSING ---
vibramycin bag done infusing- MAR off schedule
--- NOTE | 2023-08-10 10:45 | PHA.DC.MC.R ---
Pharmacy [facility] has performed discharge medication reconciliation and counseling for this patient. The patient's discharge medication list was reviewed for discrepancies and discrepancies were resolved. The patient was counseled on the following discharge medications and changes in medications for homegoing were reviewed. The Reason for Use, instructions for use, and potential side effects were reviewed for all new medications. The patient's questions regarding all of their medications were answered. 1. Cephalexin 500 mg PO TID x 6 days 2. Senna/docusate 2 tabs PO BID PRN constipation The patient was able to verbally demonstrate an understanding of their discharge medications. Medications at Discharge Home Medications lisinopril 10 mg-hydrochlorothiazide 12.5 mg tablet 1 ea PO DAILY bp 07/03/20 tamsulosin 0.4 mg capsule 0.4 mg PO QHS 08/08/23 cephalexin 500 mg capsule 500 mg PO Q8H 6 days #18 caps 08/10/23 sennosides 8.6 mg-docusate sodium 50 mg tablet (Stool Softener-Stimulant Laxative) 2 tab PO BID PRN PRN Constipation #0 tabs 08/10/23
== END 2023-08-10 11:35 | disposition home or self-care (01) | DRG 728 ==
LOC: ED 15:00 → MS3 17:19
PROVIDERS: Nurse Practitioner; Admitting Provider Family Medicine; Emergency Provider Emergency Medicine; PCP Family Medicine; Visit Provider Internal Medicine
DX: N49.2 Inflammatory disorders of scrotum (principal); Z90.6 Acquired absence of other parts of urinary tract; D64.9 Anemia, unspecified; I10 Essential (primary) hypertension; K21.9 Gastro-esophageal reflux disease without esophagitis; L72.0 Epidermal cyst; N43.2 Other hydrocele; N40.0 Benign prostatic hyperplasia without lower urinary tract symptoms; Z79.899 Other long term (current) drug therapy; Z85.51 Personal history of malignant neoplasm of bladder; Z87.891 Personal history of nicotine dependence
CPT/HCPCS: 36415; 76870; 80053; 81001; 83605; 85025; 85610; 85730; 87040; 87086; 87491; 87591; 93976; 94668; 96361; 96365; 96366; 96367; 96372; 96375; 96376; 97802; 99221; 99252; 99285; J7030; J7050; A4216; G0378; G0463

== ENCOUNTER → 2023-08-24 | Outpatient (CLI) | payer MEDICARE, SELFPAY ==
--- NOTE | 2023-08-24 08:50 | EKG12_ITS ---
Test Reason : PRE OP Blood Pressure : / mmHG Vent. Rate : 102 BPM Atrial Rate : 102 BPM P-R Int : 198 ms QRS Dur : 094 ms QT Int : 362 ms P-R-T Axes : 087 083 088 degrees QTc Int : 471 ms Sinus tachycardia Right atrial enlargement Borderline ECG Confirmed by SUKHWINDER WAKEFIELD, LEORA ([id number]), publications editor HUI SMART ([id number]) on 08/25/2023 12:50:43 PM Referred By: Ceasar Guevara Confirmed By:LEORA PRETTY MD
== END | disposition home or self-care (01) ==
LOC: PSN 08:49
PROVIDERS: PCP Family Medicine; Referring Provider Urology; Visit Provider Urology
DX: Z01.810 Encounter for preprocedural cardiovascular examination (principal)
CPT/HCPCS: 93005

== ENCOUNTER → 2024-01-18 | Outpatient (CLI) | payer MEDICARE, SELFPAY ==
--- NOTE | 2024-01-18 | BLA_PTH ---
PATHOLOGY RESULTS PATIENT: NURA HOLMAN Jr. LOC: [facility] U#:[id number] AGE/SX: 73/M ROOM: RE01/18/[address]: Dr. Ceasar Guevara MD : 1950 BED: DIS: 01/18/2024 SPEC #: [id number] RECD: 01/19/24 08:54 STATUS: KYREE REDiya #: [id number] MONICA: 01/18/24 00:[address]: Ceasar Guevara DEPT: SURGICAL PATHOLOGY RECD BY: Maximilian Montero ENTERED: 01/19/24 08:54 SP TYPE: BLADDER BX OTHR DR: Dr. 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 See comment. SJ:dhara 01/20/2024 COMMENT The specimen consists of a few minute fragments of superficial tumor. Underlying lamina propria or detrusor muscle is not identified in the specimen. Please make reference to previous specimens ([id number]), urinary bladder tumor, TUR with diagnosis of papillary urothelial carcinoma and ([id number]) bladder, biopsy with diagnosis of papillary urothelial carcinoma, low grade and ([id number]) bladder, biopsy with diagnosis of papillary urothelial carcinoma, low grade and ([id number]) bladder tumor, TUR with diagnosis of papillary urothelial carcinoma. Case has been reviewed in consultation with Dr. Mendoza who concurs with the above diagnosis. IDC:AM MICROSCOPIC DESCRIPTION Slides are reviewed. GROSS DESCRIPTION Received in fixative is one container labeled with the patient's name and designated bladder biopsy. The specimen consists of multiple minute fragments of hogan soft tissue that in aggregate measure 0.2 x 0.1 x <0.1 cm. The specimen is totally submitted in one cassette. / SJ:dhara 01/19/2024 TC:0 CPT: 01573
== END | disposition home or self-care (01) ==
LOC: LABSPEC 16:15
PROVIDERS: PCP Family Medicine; Referring Provider Urology; Visit Provider Urology
DX: C67.9 Malignant neoplasm of bladder, unspecified (principal)
CPT/HCPCS: 88305

== ENCOUNTER → 2024-11-03 | Outpatient (CLI) | payer MEDICARE, SELFPAY ==
--- NOTE | 2024-11-03 | BLA_PTH ---
PATIENT: NURA HOLMAN Jr. LOC: [facility] U#:[id number] AGE/SX: 74/M ROOM: RE11/03/[address]: Dr. Ceasar Guevara MD : 1950 BED: DIS: 11/03/2024 SPEC #: [id number] RECD: 11/04/24 13:08 STATUS: KYREE REDiya #: [id number] MONICA: 11/03/24 00:[address]: Ceasar Guevara DEPT: SURGICAL PATHOLOGY RECD BY: Maximilian Montero ENTERED: 11/04/24 13:08 SP TYPE: BLADDER BX OTHR DR: Dr. Lopez Gonzales MD Tissues: Urinary bladder, NOS Procedures: Surgery Specimen Level IV HEADER OPERATION: Bladder biopsy PRE-OP DIAGNOSIS: Neoplasm of uncertain behavior of bladder TISSUE SUBMITTED: Bladder biopsy MICROSCOPIC DIAGNOSIS Bladder biopsy: Noninvasive papillary urothelial carcinoma, low grade (1-2/3). See comment. SJ 11/07/2024 COMMENT Detrusor muscle is not present in the specimen. Vascular or lymphatic invasion is not identified. Please also make reference to previous specimens [id number], bladder tumor, TUR and [id number], bladder, biopsy with diagnosis of papillary urothelial carcinoma. Correlation with clinical findings and appropriate follow up are necessary. MICROSCOPIC DESCRIPTION Slides are reviewed. GROSS DESCRIPTION Received in fixative is one container labeled with the patient's name and designated Bladder biopsy. The specimen consists of one irregular fragment of light hogan soft tissue that measures 0.2 x 0.1 x 0.1 cm. The specimen is totally submitted in one cassette. 11/04/2024 TC:0 [facility]:[id number]
== END | disposition home or self-care (01) ==
PROVIDERS: PCP Family Medicine; Referring Provider Urology; Visit Provider Urology
DX: C67.9 Malignant neoplasm of bladder, unspecified (principal)
CPT/HCPCS: 88305